=== PATIENT | male | born 1980 | race Caucasian/White ===

== ENCOUNTER 2017-01-07 18:32 | Emergency (ER) | payer SELFPAY ==
[2017-01-07 19:30] LABS: #Basophils 0.1 thou/uL (0.0-0.2); #Eosinphils 0.3 thou/uL (0.0-0.7); #Lymphocytes 3.5 thou/uL (1.20-3.40); #Monocytes 0.8 thou/uL (0.11-0.59); #Neutrophils 3.7 thou/uL (1.40-6.50); %Basophils 1.4 % (0.0-1.0); %Eosinophils 3.7 % (0.0-10.0); %Lymphocytes 41.2 % (21.0-51.0); %Monocytes 9.5 % (0.0-10.0); Hematocrit 44.2 % (42.0-52.0); Mean Platelet Volume 7.5 fL (7.4-10.4); Red Blood Cell (RBC) Count 4.92 mill/uL (4.70-6.10); White Blood Cell (WBC) Count 8.5 thou/uL (4.8-10.8)
[2017-01-07 19:40] LABS: ALT (SGPT) 58 U/L (8-55); AST (SGOT) 24 U/L (5-34); Alkaline Phosphatase 71 U/L (40-150); Anion Gap 13 mmol/L (10-20); BUN (Urea Nitrogen) 7 mg/dL (8.9-20.6); Bilirubin, Total 0.2 mg/dL (0.2-1.2); CK (CPK) 87 U/L (30-200); Calc. Creatinine Clearance 0 mL/min (70-130); Calcium 9.5 mg/dL (7.8-10.44); Carbon Dioxide 24 mmol/L (22-29); Chloride 109 mmol/L (98-107); Estimated GFR-MDRD Greater than 90; Globulin 2.8 g/dL (2.4-3.5); Protein, Total 6.6 g/dL (6.0-8.3)
[2017-01-07 19:50] LABS: Troponin I Less than 0.010 ng/mL (< 0.028)
== END 2017-01-07 19:42 | disposition left against medical advice (07) ==
LOC: SCSER 18:32
DX: R51 Headache (principal); R42 Dizziness and giddiness; R53.1 Weakness; F17.210 Nicotine dependence, cigarettes, uncomplicated; Z53.21 Procedure and treatment not carried out due to patient leaving prior to being seen by health care provider
CPT/HCPCS: 80053; 82553; 84484; 85025; 93005; 94760

== ENCOUNTER 2017-05-22 10:38 | Emergency (ER) | payer OTHER, SELFPAY ==
--- NOTE | 2017-05-22 11:48 | RAD ---
TWO VIEWS RIGHT FOREARM: Date: 05-22-17 History: Right forearm pain after unloading pipe. Patient felt pop in arm and forearm is now swollen and tight. FINDINGS: There is no evidence of a fracture involving the radius or ulna. No other osseous abnormality is seen . There are a few tiny linear metallic densities seen adjacent to the base of the fifth metacarpal wh ich may represent small foreign bodies within the subcutaneous soft tissues. No other findings. IMPRESSION: 1. No acute osseous abnormality involving the right forearm. 2. Suggestion of a few metallic foreign bodies in the subcutaneous soft tissues adjacent to the base of the metacarpal of the thumb. POS: [facility]
--- NOTE | 2017-05-22 18:12 | CON ---
DATE OF CONSULTATION: 05/22/2017 CHIEF COMPLAINT: Right arm pain. HISTORY OF PRESENT ILLNESS: Mr. Niño is a 36-year-old male who was at work yesterday. He was throwi ng heavy pipe. He felt a pop just distal to his elbow on the anterior surface. He had immediate vince n. He had swelling through the night. He had increased pain this morning. He went to work, but the n was sent to the emergency room when his health safety and environment manager saw him. He took some ibuprofen this mornin g. He noted some tingling last night, but this has resolved. He is comfortable upon interview [facility]. PAST MEDICAL HISTORY: The patient denies active medical problems. PAST SURGICAL HISTORY: Previous left hand fracture surgery and right foot surgery. PSYCHIATRIC: History of anxiety. SOCIAL HISTORY: The patient denies alcohol use. He smokes cigarettes. He denies drug use. ALLERGIES: No known drug allergies. FAMILY MEDICAL HISTORY: Noncontributory. REVIEW OF SYSTEMS: Positive for right arm pain only, remainder of 10 point review of systems is nega tive. PHYSICAL EXAMINATION: VITAL SIGNS: Stable. Blood pressure is 143/80, pulse 84, respiratory rate 17, temperature is 98.8. GENERAL: He is sitting upright, alert, in no apparent distress. RESPIRATORY: Breathing comfortably. ABDOMEN: Soft, nontender, nondistended. MUSCULOSKELETAL: The patient's right upper extremity has minor tenderness to palpation on the volar surface. He is able flex and extend the fingers. Passive motion of the hand and fingers is nonpainf ul. He does have discomfort with active motion. Palpable radial pulse. Sensation intact in the med meaghan, ulnar, and radial nerve distribution. He is tender to palpation over the proximal biceps tendon and he has pain with supination of the arm. There is no ecchymosis. His compartments are not tense , but are swollen. Dorsal compartments are soft. IMAGES: X-rays are negative of the right forearm. IMPRESSION: Right forearm tendon injury, possible biceps tendon rupture with swelling in the forearm . PLAN: At this point, the patient can be treated with anti-inflammatory medication, ice, elevation, a nd observation. He can go back home, but should come back to the emergency room if his pain continue s to worsen, I do not think at this point he has compartment syndrome and should not likely develop t his. I would like to see him in the clinic in approximately 1 week. At that point, we can obtain a better exam when he is not as painful for biceps tendon rupture. He will call the clinic if there an y problems arise.
== END 2017-05-22 13:19 | disposition home or self-care (01) ==
LOC: ERS 10:38
DX: S46.221A Laceration of muscle, fascia and tendon of other parts of biceps, right arm, initial encounter (principal); F41.9 Anxiety disorder, unspecified; F17.210 Nicotine dependence, cigarettes, uncomplicated; Z79.899 Other long term (current) drug therapy; X50.0XXA Overexertion from strenuous movement or load, initial encounter

== ENCOUNTER 2017-05-31 09:01 | Outpatient (CLI) | payer OTHER ==
--- NOTE | 2017-05-31 11:50 | MRI ---
MRI RIGHT ELBOW WITHOUT CONTRAST: INDICATIONS: Right forearm pain after unloading a pipe. The patient felt a pop in the arm on 05/21/2016. COMPARISON: Radiographs of the right forearm, dated 05/22/2017. FINDINGS: There is increased T2 signal involving the tendon of the common flexor origin of the medial humeral e picondyle with overlying edema of the tendon on image 7 of series 1, consistent with medial epicondyl itis. The ulnar collateral ligament, radial collateral ligament, and lateral ulnar collateral ligame nt appear intact. No osteochondral lesion is evident. The extensor origin is normal appearing. The triceps tendon is normal appearing. The biceps and brachialis insertions are normal appearing. The visualized ulnar nerve is normal appearing. IMPRESSION: Mild medial humeral epicondylitis. POS: [facility]
== END 2017-05-31 09:02 | disposition home or self-care (01) ==
LOC: MRI 09:01
PROVIDERS: ATTEND Family Medicine
DX: S59.911D Unspecified injury of right forearm, subsequent encounter (principal); M77.01 Medial epicondylitis, right elbow

== ENCOUNTER 2017-07-01 07:38 | Outpatient (CLI) | payer OTHER ==
--- NOTE | 2017-07-01 10:10 | MRI ---
MRI RIGHT FOREARM WITHOUT CONTRAST: HISTORY: S59.111D, Salter-Black type I physeal fracture. COMPARISON: MRI 05/31/17. Radiograph 05/22/17. FINDINGS: Bones: No fracture. No malalignment. No marrow edema. Muscles: Normal muscle signal and bulk. Tendons: Biceps tendon and brachialis tendons are normal. No abnormality at the region of interest marker. There is low-grade edema of the common flexor tendo n origin. Neurovascular Bundles: Intact. IMPRESSION: Low-grade medial epicondylitis. No other abnormality. No abnormality at the region of interest byron er. The findings are unchanged from the 05/31/17 study. POS: [facility]
== END 2017-07-01 07:39 | disposition home or self-care (01) ==
LOC: TBSIIMAG 07:38
PROVIDERS: ATTEND Family Medicine
DX: S59.1 Physeal fracture of upper end of radius (principal); M77.01 Medial epicondylitis, right elbow

== ENCOUNTER 2018-03-24 05:26 | Emergency (ER) | payer SELFPAY ==
[2018-03-24] MEDS ORDERED: HYDROcodone/Acetaminophen 5/325 mg Tablet ONE (06:13)
== END 2018-03-24 06:22 | disposition home or self-care (01) ==
LOC: SCSER 05:26
DX: K02.9 Dental caries, unspecified (principal); F17.210 Nicotine dependence, cigarettes, uncomplicated; F41.9 Anxiety disorder, unspecified
CPT/HCPCS: 99282

== ENCOUNTER 2018-06-05 20:38 | Emergency (ER) | payer SELFPAY ==
[2018-06-05] MEDS ORDERED: Acetaminophen/Codeine 30-300mg Tablet ONE (21:20)
[2018-06-05] MEDS ORDERED: Acetaminophen 325 MG TAB ONE (21:21)
== END 2018-06-05 21:26 | disposition home or self-care (01) ==
LOC: SCSER 20:38
DX: K08.89 Other specified disorders of teeth and supporting structures (principal); F17.210 Nicotine dependence, cigarettes, uncomplicated; F41.9 Anxiety disorder, unspecified
CPT/HCPCS: 99282

== ENCOUNTER 2018-06-11 08:07 | Outpatient (CLI) | payer OTHER ==
[2018-06-11] MEDS ORDERED: Gadobenate Dimeglumine 529 MG/1 ML (20ML VIAL) ONE (09:00)
--- NOTE | 2018-06-11 10:45 | MRI ---
Right upper extremity MRI without IV contrast: HISTORY: Carpal tunnel syndrome, interstitial myositis of right forearm, neuritis right ulnar nerve, pronator syndrome of right upper extremity FINDINGS: Multiplanar, multisequence MRI examination of the right forearm is performed. A skin marker is placed at the area of palpable concern. No evidence for abnormal superficial soft tissue underlying muscle signal at the area of palpable con cern. The course of the ulnar nerve appears unremarkable. There is some focal increased T2 hyperintensity within the supinator muscle. This is a finding that c an be seen in association with posterior interosseous nerve entrapment. No abnormal marrow signal. No joint effusion. No evidence for internal derangement involving the visualized elbow. IMPRESSION: Increased T2 hyperintensity within the supinator muscle, a finding that can be seen in association wi th posterior interosseous nerve entrapment. No signal abnormality associated with the region of palpable concern. No other significant abnormality.
== END 2018-06-11 08:08 | disposition home or self-care (01) ==
LOC: SCSMRI 08:07
PROVIDERS: ATTEND Orthopaedic Surgery Hand Surgery
DX: G56.11 Other lesions of median nerve, right upper limb (principal); G56.21 Lesion of ulnar nerve, right upper limb; G56.01 Carpal tunnel syndrome, right upper limb; M60.1 Interstitial myositis; R93.7 Abnormal findings on diagnostic imaging of other parts of musculoskeletal system
CPT/HCPCS: A9577

== ENCOUNTER 2018-12-26 08:54 | Day surgery (SDC) | payer OTHER ==
[2018-12-19 11:04] VITALS: BMI 29.5
== END 2018-12-26 10:14 | disposition home or self-care (01) ==
LOC: SDC 08:54 → EEVIPCON 08:54 → SDC 10:14
PROVIDERS: ATTEND Orthopaedic Surgery Hand Surgery
DX: G56.21 Lesion of ulnar nerve, right upper limb (principal); G56.11 Other lesions of median nerve, right upper limb; G56.01 Carpal tunnel syndrome, right upper limb; Z53.09 Procedure and treatment not carried out because of other contraindication
CPT/HCPCS: J0690